=== PATIENT | male | born 1955 | race Asian ===

== ENCOUNTER → 2020-08-23 | Outpatient (CLI) | payer MEDICARE, MEDICAID | END | disposition home or self-care (01) | LOC: RAD 10:46 | DX: Z12.2 Encounter for screening for malignant neoplasm of respiratory organs (principal); J98.4 Other disorders of lung; J43.8 Other emphysema; F17.200 Nicotine dependence, unspecified, uncomplicated | CPT/HCPCS: 71271; 76706 ==